=== PATIENT | female | born 1965 | race Caucasian/White ===

== ENCOUNTER 2025-02-12 08:18 | Emergency (ER) | payer OTHER, SELFPAY ==
--- NOTE | ~2025-02-12 | CT_ITS ---
EXAMINATION: CT ABDOMEN AND PELVIS WITH CONTRAST CLINICAL INFORMATION: Left lower quadrant abdominal tenderness. COMPARISON: None. TECHNIQUE: Multidetector volumetric images were obtained from the superior aspect of the liver through the pubic symphysis following administration 85 mL of Omnipaque 350 intravenous contrast. Sagittal and coronal reformatted images were obtained on the technologist's workstation. Oral contrast: No This CT examination was performed using dose optimization techniques as appropriate, variously including the following: *Automated exposure control *Adjustment of mA and/or kV according to patient size (this includes techniques or standardized protocols for targeted exams where dose is matched to indication/reason for exam; i.e. extremities or head) *Use of iterative reconstruction technique FINDINGS: LUNG BASES: Small to moderate sized paraesophageal hiatus hernia present. Borderline cardiac enlargement. Mild dependent atelectasis present without active lung disease in the lung bases. No effusions. LIVER, GALLBLADDER, AND BILIARY TREE: The liver is normal in size, shape, and mildly decreased in attenuation representing mild fatty infiltration. No focal hepatic lesion or biliary ductal dilatation is present. The gallbladder is somewhat contracted and demonstrates a tiny calcified gallstone dependently. No wall thickening or inflammation present. PANCREAS: Mild prominence of the proximal pancreatic duct, uncertain significance. Pancreas otherwise normal. SPLEEN: Unremarkable. ADRENAL GLANDS: Mild left hyperplasia. The right is normal. KIDNEYS AND URETERS: There are bilateral small renal cysts, the largest in the left kidney upper pole measuring 1.3 cm in diameter. No hydronephrosis, calculus, or suspicious renal lesions. No hydroureter. BLADDER: Suboptimally distended but grossly normal. GASTROINTESTINAL TRACT: There is moderate to severe sigmoid diverticulosis. There is a focus of inflammation and enhancement involving the mid sigmoid colon with prominent enhancing diverticulum, consistent with known complicated diverticulitis. No abscess or fluid collection. No CT evidence of appendicitis. Remainder of the colon is normal in appearance. Small bowel is normal in caliber and course. Hiatus hernia. Stomach is otherwise normal. Duodenum is normal. Rectum is normal. ABDOMINAL WALL: No hernia or other abnormality. LYMPH NODES: No pathologic lymphadenopathy present. VASCULAR: No aneurysm. Mild atheromatous calcification of the aorta and iliac arteries. PELVIC VISCERA: The uterus and adnexa are unremarkable. OSSEOUS STRUCTURES: No suspicious lytic or blastic bone lesions. Mild to moderate spinal degenerative changes. CT/CT abdomen pelvis w IV con IMPRESSION: 1. Mild acute non-complicated sigmoid diverticulitis. 2. Small to moderate-sized paraesophageal hiatus hernia. 3. Mild fatty infiltration of liver. 4. Tiny calcified gallstone without evidence of gallbladder inflammation. 5. Additional ancillary findings as discussed in the body of the report. Electronically signed by: Schuyler Gutierrez MD 02/12/2025 11:02 AM EDT
[2025-02-12 08:20] VITALS: BP 143/78; PULSE 89; RESP 16; TEMP 36.5; O2SAT 100; BMI 31.4
--- NOTE | 2025-02-12 08:29 | ED_ITS ---
HPI - General Adult General Chief complaint: Abdominal Pain Stated complaint: diarrhea vomiting abd pain Time Seen by Provider: 02/12/25 08:29 Source: patient, family, RN notes reviewed and old records reviewed Mode of arrival: ambulatory Limitations: no limitations History of Present Illness ED Provider: S[facility] narrative: Patient is a 59-year-old female with history of restless leg syndrome presenting to the emergency department with complaint of diarrhea for the past 5 days, then developed nausea and vomiting over the past few days. Also reporting associated LLQ abdominal pain. Denies history of prior abdominal surgeries. States emesis has been non-bloody, non-bilious. Denies hematochezia or melena. Denies fevers. Denies any known sick contacts, denies recent antibiotic use. Notes that she did recently switch her RLS medication from ropinirole to pramiprexole and is unsure if this is related to her symptoms. MD complaint: abdominal pain Onset (ago): day(s) Related Data Previous Rx's ?Medication ?Instructions ?Recorded amoxicillin 875 mg-potassium 1 tab PO BID #19 tabs clavulanate 125 mg tablet amoxicillin 875 mg-potassium 1 tab PO BID #20 tabs clavulanate 125 mg tablet ondansetron 4 mg disintegrating 4 mg PO Q8H PRN nausea and 02/12/25 tablet vomiting #10 tabs ondansetron 4 mg disintegrating 4 mg PO Q8H PRN nausea and 02/12/25 tablet vomiting #10 tabs Allergies Allergy/AdvReac Type Severity Reaction Status Date / Time Sulfa (Sulfonamide Allergy Hives Verified 02/12/25 08:23 Antibiotics) clarithromycin (From Biaxin) AdvReac Unknown Verified 02/12/25 08:23 Review of Systems 2 Review of Systems: As per HPI Yes all other systems are reviewed and are negative Constitutional: Constitutional: Reports as per HPI PMFSH Social History Social History Smoked in Last 30 Days: Yes Use of substances other than those prescribed or required for medical reasons: Yes Substance Use Type: Marijuana Substance Use Frequency: Occasionally Last Used Substance: Unknown Advance Directives: No Advance Directives Information Provided: No Do you have a plan to hurt others: No Plan Patient : No Physical Exam ED Vital Signs: Vital Signs - 24 hr 02/12/25 08:20 Temperature 97.7 F Pulse Rate 89 Respiratory Rate 16 Blood Pressure 143/78 H Pulse Oximetry 100 Oxygen Delivery Method Room Air BMI result Body Mass Index 31.4 Vital signs have been reviewed and appear to be correct. Blood pressure normal. Heart rate normal. Respiratory rate normal. Temperature normal. Oxygen saturation normal. Const General: cooperative, healthy appearing and no acute distress Orientation/consciousness: oriented to person, oriented to place, oriented to time and patient oriented x3 Limitations: no limitations HENMT Head: Yes normocephalic and Yes atraumatic Ears: external ears normal General nose exam: Normal external nose present Face and sinus: Yes face symmetric Mouth: oropharynx normal and moist mucous membranes Throat: Yes uvula midline Eyes Pupils: Equal, round and reactive pupils present Neck Neck: Yes normal visual inspection and Yes supple Resp Effort & Inspection: normal respiratory effort and able to speak in complete sentences Auscultation: clear to auscultation bilaterally Cardio Rate: regular rate Rhythm: regular rhythm Heart sounds: S1 normal heart sound present and S2 normal heart sound present GI Palpation (GI): Soft to palpation and Tenderness to palpation present (GI) in the LLQ Auscultation: normoactive bowel sounds General: Yes no CVA tenderness Back/Spine/Pelvis Back: no CVA tenderness Skin General skin exam: elasticity normal and turgor normal Neuro General: oriented to person, oriented to place, oriented to time, patient oriented x3, moves all extremities, no focal motor deficits and CN's II-XI intact bilaterally Cranial nerves: Yes Equal, round and reactive pupils present Cognition (Neuro): normal cognition Extrem General: Yes full ROM, Yes no pedal edema and Yes no calf tenderness Psych Mental Status: mental status grossly normal Affect: normal affect Thought process: Normal thought process present Medications Administered Discontinued Medications Generic Name Dose Route Start Last Admin Trade Name Freq PRN Reason Stop Dose Admin Sodium Chloride 1,000 mls @ 999 mls/hr 02/12/25 09:15 02/12/25 10:21 Ns IV 02/12/25 10:15 Infused .Q1H1M GAYLE Infusion Iohexol 100 ml 02/12/25 10:34 02/12/25 10:34 Iohexol 350 Mg/Ml 100 Ml Infus..Btl IV 02/12/25 10:35 85 ml ONCE ONE Administration Morphine Sulfate 4 mg 02/12/25 09:12 02/12/25 09:26 Morphine Sulfate 4 Mg/Ml Cartridge IVPUSH 02/12/25 09:13 4 mg ONCE ONE Administration Protocol Ondansetron HCl 4 mg 02/12/25 09:12 02/12/25 09:25 Ondansetron Hcl 4 Mg/2 Ml Vial IVPUSH 02/12/25 09:13 4 mg ONCE ONE Administration Medical Decision Making Medical Decision Making [facility] Narrative: Patient is a 59-year-old female with history of restless leg syndrome presenting to the emergency department with complaint of diarrhea for the past 5 days, then developed nausea and vomiting over the past few days. Also reporting associated LLQ abdominal pain. On exam patient is awake, A+Ox3, VS WNL, afebrile, normal neurological exam without focal deficits, physical exam findings as above. Given reported symptoms and physical exam findings, initial differential includes but is not limited to diverticulitis, bowel obstruction, gastroenteritis. Lower concern for perforation/abscess as patient denies fevers, is afebrile. Labs notable for mild leukocytosis without any other significant abnormalities. CT A/P notable for diverticulitis. My interpretation is in agreement with the radiologist's interpretation. Patient updated on results and all questions answered including incidental CT findings. Advised follow up with PCP. Return precautions discussed at bedside. Patient verbalized understanding of and agreement with plan. Differential Diagnosis Differential Diagnoses: The differential diagnosis associated with the presentation includes as per [facility] Admission/Observation Consideration of admission/observation: Escalation of care including admission/observation considered Patient would have been admitted to the hospital had their clinical presentation warranted hospital admission. Lab Data [facility] Lab Attestation statement: I reviewed the patient's lab results. as per [facility] 02/12/25 08:44 02/12/25 08:44 Labs: Lab Results 02/12/25 Range/Units 08:44 WBC 13.8 H (4.8-10.8) X10*3/uL RBC 4.29 (4.20-5.50) X10*6/uL Hgb 13.8 (12.0-16.0) g/dl Hct 38.9 (37.0-47.0) % MCV 90.7 (80.0-98.0) fL MCH 32.2 (27.0-33.0) pg MCHC 35.5 H (31.0-35.0) g/dl RDW 12.4 (11.0-16.0) % Plt Count 346 (160-400) X10*3/uL MPV 9.6 (9.4-12.3) fL Immature Gran % (Auto) 0.4 (0.0-0.4) % Neut % (Auto) 72.0 (45-73) % Lymph % (Auto) 21.1 (20-40) % Bond % (Auto) 4.6 (2-11) % Eos % (Auto) 1.5 (0-4) % Baso % (Auto) 0.4 (0-2) % Lymph # (Auto) 2.9 (1.2-4.9) X10*3/uL Bond # (Auto) 0.6 (0.1-1.2) X10*3/uL Eos # (Auto) 0.2 (0.0-0.4) X10*3/uL Baso # (Auto) 0.1 (0.0-0.2) X10*3/uL Abs Immat Gran (auto) 0.06 H (0.00-0.03) X10*3/uL Absolute Neuts (auto) 9.9 H (2.0-8.3) x10*3/uL Absolute Nucleated RBC 0.000 (0.0-0.012) X10*3/uL Nucleated RBC % (auto) 0.0 (0.0-0.2) /100WBC Sodium 142 (135-145) mmol/L Potassium 3.5 (3.3-5.1) mmol/L Chloride 107 (96-108) mmol/L Carbon Dioxide 24 (22-29) mmol/L Anion Gap 15 (12-20) BUN 17 H (9-16) mg/dL Creatinine 0.66 (0.5-1.4) mg/dL Estim Creat Clear Calc 84.1 Estimated GFR > 60 Random Glucose 116 H (60-115) mg/dL Calcium 9.7 (8.4-10.2) mg/dL Magnesium 1.9 (1.6-2.6) mg/dL Total Bilirubin 0.3 (0.0-1.0) mg/dL AST 19 (5-31) U/L ALT 12 (0-31) U/L Alkaline Phosphatase 117 (39-117) U/L Total Protein 7.0 (6.5-8.0) g/dL Albumin 4.2 (3.5-5.0) g/dL COVID-19 ([place]) Negative (Negative) COVID-19 Clin Com See Note Influenza Type A (MARY) Negative (Negative) Influenza Type B (MARY) Negative (Negative) Influenza A & B Note See Note Independent Interpretation I performed an independent interpretation of an: CT Scan Interpretation: CT A/P notable for diverticulitis Radiology Impression Discussion of test interpretation with radiology: I have reviewed the radiologist's reading. Radiologist Impression: CT/CT abdomen pelvis w IV con IMPRESSION: 1. Mild acute non-complicated sigmoid diverticulitis. 2. Small to moderate-sized paraesophageal hiatus hernia. 3. Mild fatty infiltration of liver. 4. Tiny calcified gallstone without evidence of gallbladder inflammation. 5. Additional ancillary findings as discussed in the body of the report. External Record Review External record reviewed: Inpatient record, Office record and Outpatient record Prescription Management I considered prescription management with: Antibiotic and Other Discharge Plan Discharge Clinical Impression: Diverticulitis Patient Disposition: Home, Self-Care Instructions: Diverticulitis (DC) Additional Instructions: You were evaluated in the emergency department today for abdominal pain, nausea, vomiting and diarrhea. Your CT scan shows evidence of diverticulitis which is an infection of this small pockets within your intestine. You are being treated with a course of antibiotics. Complete the full course of antibiotics as prescribed even if your symptoms improve. You are also being prescribed ondansetron which you can use every 8 hours as needed for nausea. We recommend that you follow-up with your primary care provider this week. Return to the emergency department if you develop persistent vomiting, or unable to tolerate your antibiotics, fever, worsening pain, blood in your vomit or stool or any other new or concerning symptoms. CT/CT abdomen pelvis w IV con IMPRESSION: 1. Mild acute non-complicated sigmoid diverticulitis. 2. Small to moderate-sized paraesophageal hiatus hernia. 3. Mild fatty infiltration of liver. 4. Tiny calcified gallstone without evidence of gallbladder inflammation. 5. Additional ancillary findings as discussed in the body of the report. Prescriptions: New amoxicillin-pot clavulanate 875-125 mg tablet 1 tab PO BID Qty: 20 0RF ondansetron 4 mg tablet,disintegrating 4 mg PO Q8H PRN (Reason: nausea and vomiting) Qty: 10 0RF ondansetron 4 mg tablet,disintegrating 4 mg PO Q8H PRN (Reason: nausea and vomiting) Qty: 10 0RF amoxicillin-pot clavulanate 875-125 mg tablet 1 tab PO BID Qty: 19 0RF Print Language: [place]
--- OUTSIDE RECORDS SUMMARY | 2025-02-12 09:11 | XMS_ITS | Clinical Summary ---
Author Organization [facility] Address [address] [place] [address] Care Team Providers Care Pole Inspector Name Role Phone Unavailable Primary Care Provider Unavailabl e Social History Tobacco Use Types Packs/Day Years Used Date Smoking Tobacco: Never Assessed Comments Unknown Sex and Gender Information Value Date Recorded Sex Assigned at Not on file Legal Sex Female 11:05 AM EDT Gender Identity Not on file Sexual Orientation Not on file Plan of Treatment Health Maintenance Due Date Last Done Comments Breast Cancer Screening 1965 DTaP,Tdap,and Td Vaccines (1 - Tdap) 1983 Cervical Cancer Screening: P ap Smear 1985 Pneumococcal Vaccine: 50+ Ye ars (1 of 1 - PCV) 2014 Zoster Vaccines (1 of 2) 2014 Colorectal Cancer Screening: Colonoscopy 01/11/2024 HIV Screening 01/11/2024 Hepatitis C Screening 01/11/2024 Social Influencers of Health Screening 01/11/2024 COVID-19 Vaccine (1 - 2023-2 5 season) 2024 Depression Screening 06/21/2024 Influenza Vaccine (#1) 2025 RSV Immunization Adult Patie nts (1 - 1-dose 75+ series) 2039 HIB Vaccines Aged Out No longer eligi ble based on patient's age to complete this topic HPV Vaccines Aged Out No longer eligi ble based on patient's age to complete this topic Hepatitis A Vaccines Aged Out No long er eligible based on patient's age to complete this topic Hepatitis B Vaccines Aged Out No long er eligible based on patient's age to complete this topic IPV Vaccines Aged Out No longer eligi ble based on patient's age to complete this topic MMR Vaccines Aged Out No longer eligi ble based on patient's age to complete this topic Meningococcal ACWY Vaccine Aged Out N o longer eligible based on patient's age to complete this topic Meningococcal B Vaccine Aged Out No l onger eligible based on patient's age to complete this topic RSV Immunization Patients Un elizabeth 20 months Aged Out No longer eligible b ased on patient's age to complete this topic Varicella Vaccines Aged Out No longer eligible based on patient's age to complete this topic
[2025-02-12 09:17] LABS: COVID-19 Test Negative (Negative); IDNOW Serial# 55D5AD1C
[2025-02-12 09:22] LABS: IDNOW Serial# 58CA691E; Influenza B2 Negative (Negative)
[2025-02-12 09:26] LABS: MANUAL DIFF FLAG NO
[2025-02-12 09:27] LABS: Hematocrit 38.9 % (37.0-47.0); Hemoglobin 13.8 g/dl (12.0-16.0); Imm Gran Abs Auto 0.06 X10*3/uL (0.00-0.03); Imm Gran Pct Auto 0.4 % (0.0-0.4); Lymphocytes Absolute Auto 2.9 X10*3/uL (1.2-4.9); Mean Corpuscular HGB Conc 35.5 g/dl (31.0-35.0); Mean Corpuscular Hemoglobin 32.2 pg (27.0-33.0); Mean Corpuscular Volume 90.7 fL (80.0-98.0); NRBC Abs Auto 0.000 X10*3/uL (0.0-0.012); NRBC Pct Auto 0.0 /100WBC (0.0-0.2); Platelet Count 346 X10*3/uL (160-400); Red Blood Count 4.29 X10*6/uL (4.20-5.50); White Blood Count 13.8 X10*3/uL (4.8-10.8)
[2025-02-12 09:43] LABS: Alanine Aminotransferase 12 U/L (0-31); Albumin Level 4.2 g/dL (3.5-5.0); Alkaline Phosphatase 117 U/L (39-117); Anion Gap 15 (12-20); Aspartate Amino Transferase 19 U/L (5-31); Blood Urea Nitrogen 17 mg/dL (9-16); Calcium 9.7 mg/dL (8.4-10.2); Carbon Dioxide 24 mmol/L (22-29); Chloride 107 mmol/L (96-108); Creatinine Clr Calc Pharmacy 84.1; Estimated Glomerular Filt Rate > 60; Magnesium 1.9 mg/dL (1.6-2.6); Potassium 3.5 mmol/L (3.3-5.1); Sodium 142 mmol/L (135-145); Total Protein 7.0 g/dL (6.5-8.0)
[2025-02-12] MEDS: iohexoL 350 MG/ML 100 ML INFUS..BTL IV (10:34)
[2025-02-12 11:37] VITALS: BP 110/54; PULSE 78; RESP 16; TEMP 36.8; O2SAT 98
[2025-02-12 11:45] VITALS: BP 110/54; PULSE 78; RESP 16; TEMP 36.8; O2SAT 98
== END 2025-02-12 12:02 | disposition home or self-care (01) ==
PROVIDERS: Registered Nurse Emergency; Emergency Provider Emergency Medicine; PCP Internal Medicine
DX: K57.32 Diverticulitis of large intestine without perforation or abscess without bleeding (principal); R10.2 Pelvic and perineal pain; R10.32 Left lower quadrant pain; R11.0 Nausea; Z03.818 Encounter for observation for suspected exposure to other biological agents ruled out; Z79.899 Other long term (current) drug therapy
CPT/HCPCS: 74177; 80053; 83735; 85025; 87502; 87635; 96361; 96374; 96375; 99284; 99285; J2270; J2405; Q9967

== ENCOUNTER → 2025-02-12 10:03 | Outpatient (BNV) | payer OTHER, SELFPAY | PROVIDERS: Emergency Provider Emergency Medicine; PCP Internal Medicine; Visit Provider Radiology Diagnostic Radiology | DX: R10.814 Left lower quadrant abdominal tenderness (principal); K44.9 Diaphragmatic hernia without obstruction or gangrene; K80.20 Calculus of gallbladder without cholecystitis without obstruction | CPT/HCPCS: 74177 ==